=== PATIENT | female | born 1990 | race African-American/Black ===

== ENCOUNTER 2016-10-06 10:43 | Emergency (ER) | payer OTHER | END 2016-10-06 10:48 | disposition home or self-care (01) | LOC: CED 10:43 | DX: N61.1 Abscess of the breast and nipple (principal); I10 Essential (primary) hypertension; F17.210 Nicotine dependence, cigarettes, uncomplicated | CPT/HCPCS: 10060; 87070; 87077; 87186; 87205; 99283 ==

== ENCOUNTER 2016-10-08 13:42 | Emergency (ER) | payer OTHER | END 2016-10-08 13:52 | disposition home or self-care (01) | LOC: CED 13:42 | DX: Z48.00 Encounter for change or removal of nonsurgical wound dressing (principal); N61.1 Abscess of the breast and nipple; I10 Essential (primary) hypertension; F17.200 Nicotine dependence, unspecified, uncomplicated | CPT/HCPCS: 99282 ==

== ENCOUNTER 2017-01-09 13:09 | Emergency (ER) | payer OTHER | END 2017-01-09 14:09 | disposition home or self-care (01) | LOC: CED 13:09 → CFTX 13:09 | DX: N61.1 Abscess of the breast and nipple (principal); I10 Essential (primary) hypertension; F17.200 Nicotine dependence, unspecified, uncomplicated | CPT/HCPCS: 99283 ==